=== PATIENT | male | born 1990 | race Caucasian/White ===

== ENCOUNTER 2019-06-21 23:47 | Emergency (ER) | payer OTHER, MEDICAID ==
[~2019-06-21] VITALS: Ht 182.9 cm; Wt 54.4 kg
[2019-06-21 23:50] VITALS: BP_SYST 121
--- NOTE | 2019-06-22 00:10 | NUR ---
Patient to ER chair to [email or web address] for evaluation. Side rails up. Report given to Román FARMER.
[2019-06-22] MEDS ORDERED: KETOROLAC TROMETHAMINE 60 MG/2 ML VIAL IM ONE (00:15)
--- NOTE | 2019-06-22 00:15 | NUR ---
Pt fell 3 feet off of bed onto hard wood floor landing on right shoulder x 1 hour [employer]. Denies head injury or trauma, no LOC. No deformity to right shoulder noted. Pt able to move RUE without difficulty. Pt with hx of Asperger's Syndrome, rates pain at 8/10.
--- NOTE | 2019-06-22 00:17 | NUR ---
Dr. Fitzgerald at bedside.
[2019-06-22 00:25] VITALS: BP_SYST 122
--- NOTE | 2019-06-22 00:25 | NUR ---
Patient given written and verbal discharge instructions and verbalizes understanding. ER MD discussed with patient the results and treatment provided. Patient in stable condition. ID arm band removed. Rx of Naprosyn given. Patient educated on pain management and to follow up with PMD. Pain Scale 4/10. Opportunity for questions provided and answered. Medication side effect fact sheet provided.
== END 2019-06-22 00:25 | disposition home or self-care (01) ==
LOC: SED 23:47
DX: S43.401A Unspecified sprain of right shoulder joint, initial encounter (principal); W06.XXXA Fall from bed, initial encounter; Y93.89 Activity, other specified; Y92.89 Other specified places as the place of occurrence of the external cause; Y99.8 Other external cause status
CPT/HCPCS: 73030; 96372; 99283; J1885